=== PATIENT | male | born 1990 | race Caucasian/White ===

== ENCOUNTER 2022-10-27 11:38 | Outpatient (OUT) | payer OTHER, SELFPAY ==
[2022-10-27 11:51] LABS: Basophils Percent Auto 0.4 % (0.2-2.0); Eosinophils Absolute Auto 0.2 10^3/uL (0.0-0.7); Eosinophils Percent Auto 3.1 % (0.9-7.0); Hematocrit 42.5 % (42.0-54.0); Lymphocytes Absolute Auto 1.9 10^3/uL (1.2-3.8); Lymphocytes Percent Auto 35.7 % (20.5-60.0); Mean Corpuscular HGB Conc 32.9 g/dL (29.9-35.2); Mean Corpuscular Hemoglobin 31.6 pg (25.9-34.0); Mean Corpuscular Volume 95.9 fL (80.0-94.0); Mean Platelet Volume 9.8 fL (9.5-13.5); Monocytes Absolute Auto 0.3 10^3/uL (0.3-0.8); Neutrophils Absolute Auto 2.9 10^3/uL (1.4-6.5); Neutrophils Percent Auto 54.8 % (43.0-75.0); Platelet Count 241 10^3/uL (150-450); Red Blood Count 4.43 10^6/uL (4.70-6.10); Red Cell Distribution Width 11.8 % (11.0-15.0); White Blood Count 5.2 10^3/uL (4.0-11.0)
[2022-10-27 12:06] LABS: Estimated Average Glucose 229 mg/dL; Glycohemoglobin A1C 9.6 % (4.5-6.2)
[2022-10-27 12:39] LABS: Carbon Dioxide 28.2 mmol/L (21.0-32.0); Chloride 103 mmol/L (98-107); Potassium 4.6 mmol/L (3.5-5.1); Sodium 139 mmol/L (136-145)
[2022-10-27 12:40] LABS: Alanine Aminotransferase 42 U/L (16-63); Albumin Globulin Ratio 1.3; Albumin Level 4.1 g/dL (3.4-5.0); Alkaline Phosphatase 55 U/L (46-116); Anion Gap 12.4; Aspartate Amino Transferase 16 U/L (15-37); BUN Creatinine Ratio 19.8; Bilirubin Total 0.3 mg/dL (0.2-1.0); Chol HDL Ratio 2.3; Cholesterol 158 mg/dL (<=200); Estimated GFR (African America >60 (>=60); Estimated GFR (Non-African Ame >60 (>=60); Free T3 2.59 pg/mL (2.18-3.98); Globulin 3.2 g/dL; Glucose 197 mg/dL (74-106); HDL Cholesterol 70 mg/dL (40-60); Thyroid Stimulating Hormone 0.504 uIU/mL (0.358-3.740); Total Protein 7.3 g/dL (6.4-8.2); Triglycerides 26 mg/dL (<=150); VLDL CHOLESTEROL 5.2 mg/dL
== END 2022-10-27 11:39 | disposition home or self-care (01) ==
LOC: LAB 11:38
PROVIDERS: PCP Family Medicine; Visit Provider Family Medicine
DX: Z00.00 Encounter for general adult medical examination without abnormal findings (principal); E78.5 Hyperlipidemia, unspecified; R73.09 Other abnormal glucose
CPT/HCPCS: 36415; 80053; 80061; 83036; 84436; 84443; 84481; 85025

== ENCOUNTER 2024-09-05 08:44 | Outpatient (OUT) | payer OTHER, SELFPAY ==
--- OUTSIDE RECORDS SUMMARY | 2024-04-11 12:03 | XMS_ITS ---
Author Organization The [facility] in [place] Address [address] [place] [address] Care Team Providers Care Seaman Officer Name Role Phone Rene Colin Primary Care Provider REASON FOR VISIT shauna Medications Medication SIG (Take, Route, Frequency, Duration) Notes Start Date End Date Status FreeStyle Shauna 2 Plus Sensor - used to monitor blood sugar multiple times daily DX:E11.9 for 28 days 04/11/2024 Active FreeStyle Shauna 2 Bromide - use to monito r blood sugar multiple times daily DX:E11.9 for 365 days 04/11/2024 Active Encounters Encounter Location Date Provider Diagnosis [facility] [address] [place] [address] 04/11/2024 Rene Colin Plan Of Treatment Medication Medication Name Sig Start Date Stop Date Notes FreeStyle Shauna 2 Plus Senso r - used to monitor blood sugar multiple times daily DX:E11.9 for 28 days 04/11/2024 FreeStyle Shauna 2 Bromide - use to monito r blood sugar multiple times daily DX:E11.9 for 365 days 04/11/2024 Next Appt Details Provider Name:Rene Colin, 05:00:00 PM, [address] [place], [address], Progress Notes * Randy DE LA ROSADOB: 2 (33 yo M)Acc No.[id number]:04/11/2024 Patient: Randy COSBY :1990 A ge:33 Y S ex:Male Address:[address], [place], [address] * Refills Start FreeStyle Shauna 2 Bromide Device, -, 1, use to monitor blood sugar multiple times daily DX:E11.9, 365 days, Refills=0 Start FreeStyle Shauna 2 Plus Sensor Miscellaneous, -, 2, used to monitor blood sugar multiple times daily DX:E11.9, 28 days, Refills=11 * true * Date: Generated for Patrice dawn/Chon/Jose Eduardo on: 0 09/05/2024 08:49 AM EDT
--- OUTSIDE RECORDS SUMMARY | 2024-08-12 13:41 | XMS_ITS ---
Author Organization The [facility] in [place] Address [address] [place] [address] Care Team Providers Care Environmental Analyst Name Role Phone Rene Colin Primary Care Provider REASON FOR VISIT shauna reader Medications Medication SIG (Take, Route, Frequency, Duration) Notes Start Date End Date Status FreeStyle Shauna 2 Wirt - use to monito r blood sugar multiple times daily DX:E11.9 for 365 days Active Encounters Encounter Location Date Provider [facility] [address] [place] [address] 08/12/2024 Rene Colin Plan Of Treatment Medication Medication Name Sig Start Date Stop Date Notes FreeStyle Shauna 2 Wirt - use to monito r blood sugar multiple times daily DX:E11.9 for 365 days Next Appt Details Provider Name:Rene Colin, 05:00:00 PM, [address] [place], [address], Progress Notes * Randy DE LA ROSADOB: 2 (34 yo M)Acc No.[id number]:08/12/2024 Patient: Michael Randy TURNER :1990 A ge:34 Y S ex:Male Address:[address] [facility] [place], [address] * Refills Refill FreeStyle Shauna 2 Wirt Device, -, 1, use to monitor blood sugar multiple times daily DX:E11.9, 365 days, Refills=0 * true * Date: Generated for Printi ng/Chon/Jose Eduardo on: 0 09/05/2024 08:48 AM EDT
--- OUTSIDE RECORDS SUMMARY | 2024-09-05 08:48 | XMS_ITS | Clinical Summary ---
Author Organization [facility] Address [address] [place] [address] Care Team Providers Care Graduate Internship Name Role Phone Unavailable Primary Care Provider Unavailabl e Social History Tobacco Use Types Packs/Day Years Used Date Smoking Tobacco: Never Assessed Sex and Gender Information Value Date Recorded Sex Assigned at Not on file Legal Sex Male 6:36 PM EDT Gender Identity Not on file Sexual Orientation Not on file Plan of Treatment Not on file
--- OUTSIDE RECORDS SUMMARY | 2024-09-05 08:49 | XMS_ITS | Patient Health Record ---
Author Organization [facility] in [place] Address [address] [place] [address] Care Team Providers Care Tentmaker Name Role Phone FredRene ramirez Primary Care Provider [phone] Allergies Allergen (clinical drug ingredient) Drug/Non Drug Allergy documented on EMR Reaction Allergy Type Onset Date Status Sudafed hives Drug Allergy Active Reason For Referral No Information Medications Medication SIG (Take, Route, Fr equency, Duration) Notes Start Date End Date Status FreeStyle Shauna 2 Plus Sensor - used to monitor blood sugar multiple times daily DX:E11.9 for 28 days 04/11/2024 Active Insulin Lispro (1 Unit Dial) 100 UNIT/ML INJECT SUBCUTANEOUSLY THREE TIMES DAILY PER SLIDING SCALE MAX 32 UNITS DAILY for 47 days Active Lantus SoloStar 100 UNIT/ML INJECT 18 UNITS SUBCUTANEOUSLY IN THE MORNING AND 14 UNITS AT BEDTIME for 47 Active FreeStyle Shauna 2 Lutts - use to monitor blood sugar multiple times daily DX:E11.9 for 365 days Active Social History Tobacco Use: Social History Observation Description Date Details (start date - stop date) Former Smoker 02/06/2006 - 02/06/2021 Tobacco Use/Smoking Question Answer Notes Patient is a former smoker When did you start smoking? 02/06/2006 When did you stop smoking? 02/06/2021 Alcohol Screen (Audit-C) Question Answer Notes Did you have a drink contain ing alcohol in the past year? Yes How often did you have a dri nk containing alcohol in the past year? Less than monthly (1 point) Points 1 Interpretation Negative AUDIT-C (Standard) Question Answer Notes Did you have a drink containing alcohol in the p ast year? No Points 0 Interpretation Negative Problems Problem Type SNOMED Code ICD Code Onset Dates Problem Status W/U Status Risk Notes Problem Well adult (631488896) Well adult (Z00.00) Active confirmed Problem Type I diabetes mellitus without complication (249535617) Controlled type 1 diabetes mellitus (E10.9) Active confirmed Problem Ketoacidosis in type I diabetes mellitus (697697259) DM (diabetes mellitus) type 1 with ketoacidosis (E10.10) Active confirmed Vital Signs Blood pressure diastolic 70 mm Hg 08/12/2024 Height 71 in 08/12/2024 Blood pressure systolic 122 mm Hg 08/12/2024 Weight 162 lbs 08/12/2024 BMI 22.59 kg/m2 08/12/2024 Encounters Encounter Location Date Provider Diagnosis [address] [address] [facility] [address] [place] [address] 04/11/2024 Rene [facility] [address] [place] [address] 08/12/2024 Rene Colin [facility] [address] [place] [address] 09/27/2023 Rene [place] DM (diabetes mellitu s) type 1 with ketoacidosis E10.10 and Controlled type 1 diabetes mellitus E10.[address] [address] 01/29/2024 Rene [place] DM (diabetes mellitu s) type 1 with ketoacidosis E10.[address] [address] 08/12/2024 Rene [place] Well adult Z00.[address] [address] 04/11/2024 Rene [place] DM (diabetes mellitu s) type 1 with ketoacidosis E10.10 Assessments Encounter Date Diagnosis (ICD Code) Assessment Notes Treatment Notes Treatment Clinical Notes Section Notes 09/27/2023 DM (diabetes mellitus) type 1 with ketoacidosis (ICD-10 - E10.10) 09/27/2023 Controlled type 1 diabetes mellitus (ICD-10 - E10.9) 01/29/2024 DM (diabetes mellitus) type 1 with ketoacidosis (ICD-10 - E10.10) 04/11/2024 DM (diabetes mellitus) type 1 with ketoacidosis (ICD-10 - E10.10) 08/12/2024 Well adult (ICD-10 - Z00.00) 04/11/2024 Other Yearly Flu Shot Yearly Eye Exam Check Feet Daily. Plan Of Treatment Pending Test Test Name Order Date CMP (COMPLETE METABOLIC PANEL) 3 HEMOGLOBIN A1C (GLYCO) 08/12/2024 HEMOGLOBIN A1C (GLYCO) 10/24/2022 LIPID PANEL (CHOL/TRIG/HDL/LDL) 08/13/19 25 LIPID PANEL (CHOL/TRIG/HDL/LDL) 10/25/19 23 CBC WITH DIFF 10/24/2022 THYROID PANEL (T4/TSH/FREE T3) 3 THYROID PANEL (T4/TSH/FREE T3) 5 CMP (COMP MET GARCIA) w/eGFR CKD-EPI 2024 CBC WITH DIFF 08/12/2024 Next Appt Details Provider Name:Rene Colin, 05:00:00 PM, [address] [place], [address], Insurance Providers Payer Name Payer Address Payer Phone Subscriber Number Group Number Insured Name Patient Relationship to Insured Coverage Start Date Coverage End Date [employer] [place] [employer] [address] [facility] [place] [address] [id number] Randy De La Rosa Self - patient is the insured 3 Medical (General) History Medical History History ICD Code DKA, type 1 E10.10 Surgical History Surgery Date(Month/Year)
[2024-09-05 09:56] LABS: Hematocrit 42.2 % (42.0-54.0); Hemoglobin 14.2 g/dL (14.0-18.0); Immature Granulocytes Abs Auto 0.01 10^3/uL (0.00-0.03); Immature Granulocytes Pct Auto 0.2 % (0.0-0.5); Lymphocytes Absolute Auto 1.9 10^3/uL (1.2-3.8); Mean Corpuscular HGB Conc 33.6 g/dL (29.9-35.2); Mean Corpuscular Hemoglobin 31.2 pg (25.9-34.0); Mean Corpuscular Volume 92.7 fL (80.0-94.0); Platelet Count 292 10^3/uL (150-450); Red Blood Count 4.55 10^6/uL (4.70-6.10); White Blood Count 4.0 10^3/uL (4.0-11.0)
[2024-09-05 10:03] LABS: Alanine Aminotransferase 43 U/L (16-63); Albumin Globulin Ratio 1.5; Albumin Level 4.1 g/dL (3.4-5.0); Alkaline Phosphatase 53 U/L (46-116); Anion Gap 13.0; Aspartate Amino Transferase 24 U/L (15-37); Blood Urea Nitrogen 19.0 mg/dL (7.0-18.0); Calcium 9.1 mg/dL (8.5-10.1); Carbon Dioxide 28.9 mmol/L (21.0-32.0); Chloride 101 mmol/L (98-107); Cholesterol 149 mg/dL (<=200); Estimated GFR (African America >60 (>=60 mL/min/1.73m^2); Estimated GFR (Non-African Ame >60 (>=60 mL/min/1.73m^2); Free T3 3.13 pg/mL (2.18-3.98); Globulin 2.7 g/dL; Glucose 154 mg/dL (74-106); HDL Cholesterol 67 mg/dL (40-60); Potassium 3.9 mmol/L (3.5-5.1); Sodium 139 mmol/L (136-145); Thyroid Stimulating Hormone 0.858 uIU/mL (0.358-3.740); Total Protein 6.8 g/dL (6.4-8.2); Triglycerides 66 mg/dL (<=150); VLDL CHOLESTEROL 13.2 mg/dL
== END 2024-09-05 08:45 | disposition home or self-care (01) ==
LOC: LAB 08:46
PROVIDERS: PCP Family Medicine; Visit Provider Family Medicine
DX: Z00.00 Encounter for general adult medical examination without abnormal findings (principal)
CPT/HCPCS: 36415; 80053; 80061; 83036; 84436; 84443; 84481; 85025